=== PATIENT | female | born 1985 | race African-American/Black ===

== ENCOUNTER 2018-11-25 06:37 | Day surgery (SDC) | payer OTHER ==
[~2018-11-25] VITALS: Ht 172.7 cm; Wt 72.6 kg
[2018-11-25 07:15] VITALS: BP 109/66
[2018-11-25 12:28] VITALS: BP 100/69
== END 2018-11-25 12:10 | disposition home or self-care (01) ==
LOC: DS 06:37 → OR 08:30 → DS 12:10
PROVIDERS: Obstetrics & Gynecology
PROC: 0UBC7ZX Excision of Cervix, Via Natural or Artificial Opening, Diagnostic (ICD-10-PCS; principal; 2018-11-25 08:30)
DX: N87.0 Mild cervical dysplasia (principal); F17.200 Nicotine dependence, unspecified, uncomplicated
CPT/HCPCS: C1758; J2250; J2405; J2704; J3010

== ENCOUNTER 2019-04-14 09:51 | Emergency (ER) | payer OTHER ==
[~2019-04-14] VITALS: Ht 172.7 cm; Wt 75.3 kg
[2019-04-14 10:01] VITALS: Ht 172.7 cm; Wt 75.3 kg
[2019-04-14 11:08] LABS: BASOPHIL % 0.4 % (0-2); PLATELET COUNT 259 x10^3mcL (130-400); RED CELL DISTRIBUTION WIDTH 14.2 % (11.5-14.5)
[2019-04-14 11:47] LABS: UA SPECIFIC GRAVITY 1.025 (1.005-1.035); microscopic required? YES; urine erythrocyte 2+ (NEGATIVE)
[2019-04-14 13:11] VITALS: BP 110/65
== END 2019-04-14 13:11 | disposition home or self-care (01) ==
LOC: ED 09:51
PROVIDERS: Specialist
DX: O20.9 Hemorrhage in early pregnancy, unspecified (principal); Z3A.12 12 weeks gestation of pregnancy
CPT/HCPCS: 36415